=== PATIENT | male | born 1935 | race Caucasian/White ===

== ENCOUNTER → 2020-10-29 15:35 | Outpatient (CLI) | payer MEDICARE, BC ==
[~2020-10-29] VITALS: Ht 182.9 cm; Wt 73.0 kg
== END | disposition home or self-care (01) ==
LOC: D.CT 15:00
PROVIDERS: ATTEND Internal Medicine Pulmonary Disease
DX: R91.8 Other nonspecific abnormal finding of lung field (principal)

== ENCOUNTER 2020-11-07 07:38 | Day surgery (SDC) | payer MEDICARE, BC ==
[~2020-11-07] VITALS: Ht 182.9 cm; Wt 72.7 kg
[2020-11-07 07:59] LABS: BASOPHILS 0.1 % (0-2); EOSINOPHILS 2.2 % (0-7); HEMATOCRIT 37.6 % (42.0-54.0); HEMOGLOBIN 11.7 g/dL (13.5-17.5); LYMPHOCYTES 11.9 % (15-50); MCH 28.4 pg (26.0-34.0); MCV 91.4 fL (80.0-100.0); MEAN PLATELET VOLUME 6.8 fL (7.4-10.4); MONOCYTES 7.1 % (2-11); NEUTROPHILS 78.7 % (40-80); PLATELET COUNT 266 10x3/uL (130-400); RBC 4.12 10x6/uL (4.20-6.10); RDW 16.2 % (11.5-14.5); WBC 13.3 10x3/uL (4.8-10.8)
[2020-11-07 08:20] LABS: APTT 24.3 SECONDS (22.8-39.4); INR 1.49 (0.85-1.17); PROTIME 16.7 SECONDS (11.6-15.0)
[2020-11-07] MEDS ORDERED: HYDROCODON-ACE1 EAC7 (09:59)
[2020-11-07] MEDS ORDERED: CARDIZEM 90 MG90 MG (10:00)
[2020-11-07] MEDS ORDERED: ULTRAM50 MG (10:01)
[2020-11-07] MEDS ORDERED: LISINOPRIL20 MG (10:02)
[2020-11-07] MEDS ORDERED: OMEPRAZOLE20 M1 (10:02)
[2020-11-07] MEDS ORDERED: ZOCOR20 MG (10:02)
[2020-11-07] MEDS ORDERED: PREDNISONE20 MG (10:03)
[2020-11-07] MEDS ORDERED: WARFARIN SODIUM5 MG (10:03)
[2020-11-07] MEDS ORDERED: TRELEGY ELLIPT1 EACH (10:03)
[2020-11-07 10:04] VITALS: Ht 182.9 cm; Wt 72.7 kg
--- NOTE | 2020-11-07 10:35 | NUR ---
PLACED ON OXYGEN AT 2 L/M, STATES HE IS ON SAME AT HOME
--- NOTE | 2020-11-07 19:28 | NUR ---
1505 - IV D/C'D WITH TIP INTACT.
--- NOTE | 2020-11-07 19:29 | NUR ---
1430 - PATIENT UP TO BATHROOM TO VOID.
--- NOTE | 2020-11-07 19:29 | NUR ---
1615 - PATIENT DISCHARGED VIA WHEELCHAIR TO PRIVATE CAR.
[2020-11-08 16:10] LABS: ACID FAST SMEAR Negative (()); AFB SPECIMEN PROCESSING Concentration (())
[2020-11-09 10:12] LABS: FUNGUS STAIN Final report (())
== END 2020-11-07 16:15 | disposition home or self-care (01) ==
LOC: D.OPS 07:38
PROVIDERS: ATTEND Internal Medicine Pulmonary Disease
DX: R91.8 Other nonspecific abnormal finding of lung field (principal); J43.9 Emphysema, unspecified; R06.09 Other forms of dyspnea; Z87.891 Personal history of nicotine dependence; R59.0 Localized enlarged lymph nodes; G47.36 Sleep related hypoventilation in conditions classified elsewhere